=== PATIENT | female | born 1960 | race Caucasian/White ===

== ENCOUNTER → 2017-04-11 | Outpatient (CLI) | payer BC, MEDICARE | LOC: RAD 18:50 | DX: M25.552 Pain in left hip (principal); R05 Cough; F17.210 Nicotine dependence, cigarettes, uncomplicated; J43.9 Emphysema, unspecified; J98.4 Other disorders of lung | CPT/HCPCS: 71020; 73502 ==

== ENCOUNTER → 2017-04-25 | Outpatient (CLI) | payer BC, MEDICARE | LOC: KOH-I 10:30 | DX: M81.0 Age-related osteoporosis without current pathological fracture (principal); N95.1 Menopausal and female climacteric states; M51.37 Other intervertebral disc degeneration, lumbosacral region; R93.7 Abnormal findings on diagnostic imaging of other parts of musculoskeletal system; M51.86 Other intervertebral disc disorders, lumbar region | CPT/HCPCS: 72148; 77080 ==

== ENCOUNTER → 2020-12-22 | Outpatient (CLI) | payer BC, MEDICARE, OTHER ==
[~2020-12-22] MED LIST: ADIPEX-P37.5 MG PO; ALPRAZOLAM ER1 MG PO; ARICEPT10 MG PO; BONIVA150 MG PO; CEFUROXIME250 MG PO; CLARITIN10 M2 PO; COZAAR 50MG TAB50 MG PO; DURAGESIC1 EAC1 TD; FENOFIBRATE160 MG PO; HYDROCHLOROTHIA25 MG PO; HYDROCODON-ACE1 EAC2 PO; IMITREX100 MG PO; K-DUR TAB 20 M20 MEQ PO; LIPITOR TAB 2020 MG PO; MONTELUKAST SOD10 MG PO; NEURONTIN800 MG PO; OXYCONTIN10 MG PO; PREVACID30 MG PO; TIROSINT125 MCG PO; VENTOLIN HFA 66.7 GM INH; VITAMIN D21250 MCG PO
== END ==
LOC: CT 11:00
DX: I67.1 Cerebral aneurysm, nonruptured (principal)
CPT/HCPCS: 36415; 70496; Q9967

== ENCOUNTER → 2022-03-16 | Outpatient (CLI) | payer BC, OTHER | LOC: KOH-I 13:30 | DX: F17.210 Nicotine dependence, cigarettes, uncomplicated (principal) | CPT/HCPCS: 71271 ==